=== PATIENT | female | born 1985 | race Caucasian/White ===

== ENCOUNTER 2018-10-02 08:32 | Emergency (ER) | payer MEDICAID | END 2018-10-02 09:28 | disposition home or self-care (01) | LOC: FTE 08:32 | DX: J00 Acute nasopharyngitis [common cold] (principal) | CPT/HCPCS: 99282; Z7502 ==

== ENCOUNTER 2019-02-28 12:17 | Emergency (ER) | payer MEDICAID | END 2019-02-28 15:40 | disposition left against medical advice (07) | LOC: FTE 12:17 | DX: O26.899 Other specified pregnancy related conditions, unspecified trimester (principal); R07.81 Pleurodynia; Z3A.00 Weeks of gestation of pregnancy not specified | CPT/HCPCS: 81025; 99282 ==